=== PATIENT | female | born 1950 | race Caucasian/White ===

== ENCOUNTER → 2017-02-19 | Outpatient (CLI) | payer MEDICARE ==
--- NOTE | 2017-02-28 21:48 | RADIOLOGY REPORT PS360 ---
DIG MAMM-SCREEN [facility] W/CAD CAD Screening ORDERING PHYSICIAN : LORI LOUIE PATIENT AGE: 66 years GENDER: Female COMPARISON: Previous mammograms: Previous studies from [facility] have finally arrived. Bilateral Digital mammogram July 2011, bilateral film screen mammogram August 2004 INDICATION: Routine screening 66-yr-old. No hormones. No new complaints. Previous cyst aspiration right breast. Noncontributory Family history. TECHNIQUE: Standard CC and MLO images were obtained. R2 CAD reviewed. FINDINGS: Scattered moderate fibroglandular elements most evident towards upper outer quadrant bilateral. Moderately dense breast bilaterally... Minor asymmetry. However I see no dominant mass nor suspicious calcifications.. RIGHT BREAST:. Stable appearance since previous 2011 exam with no significant new findings. Minimal slight asymmetric fibroglandular tissue upper-outer quadrant appears satisfactory &. Can be followed LEFT BREAST: No areas of significant concern. Minor asymmetry of glandular tissue which can be followed No significant change since prior studies Follow-up in one year bilaterally recommended IMPRESSION. ---- Mild asymmetry moderate breast density but no significant focal areas of concern. . No significant change since outside studies Moderately dense breast Bilateral follow-up in one year recommended BI-RADS CATEGORY: 2_Benign RECOMMENDED FOLLOWUP: 12M 12 MONTH FOLLOW-UP (A letter has been sent to the patient regarding results of the study.)
== END ==
LOC: RAD 10:52
DX: Z12.31 Encounter for screening mammogram for malignant neoplasm of breast (principal)
CPT/HCPCS: G0202